=== PATIENT | female | born 1995 | race Caucasian/White ===

== ENCOUNTER 2017-11-08 08:53 | Emergency (ER) | payer OTHER ==
[~2017-11-08] VITALS: Ht 152.4 cm; Wt 49.9 kg
[2017-11-08 09:03] VITALS: Ht 152.4 cm; Wt 49.9 kg
[2017-11-08 10:16] VITALS: BP 142/94
== END 2017-11-08 10:16 | disposition home or self-care (01) ==
LOC: ED 08:53
DX: H66.91 Otitis media, unspecified, right ear (principal); J06.9 Acute upper respiratory infection, unspecified
CPT/HCPCS: J1200; J1885; J2270